=== PATIENT | male | born 1945 | race Caucasian/White ===

== ENCOUNTER → 2016-08-31 | Outpatient (CLI) | payer MEDICARE ==
[2016-03-16 10:32] VITALS: BP 158/73
[~2016-08-31] MED LIST: CONTRAST GIVEN MC PRN; FAMO-63 PO; FERR-26 PO; IOHEXOL 240 MG/ML 50ML VIAL. PO ONE; IOHEXOL 300 MG/ML 75 ML VIAL IV ONE; LEVO500T38 PO
--- NOTE | 2016-08-31 14:39 | RAD ---
Indication: Acute abdominal pain and left lower quadrant pain for 4 months. Axial imaging through the abdomen and pelvis was performed after the administration of intravenous contrast. Comparison is made with prior CT from 03/12/2016. The lung bases are clear. Minimal pneumobilia is again noted within the liver. Previously noted small bilateral pleural effusions have resolved. The pancreas again demonstrates some postsurgical changes. There is some mild prominence to the pancreatic duct however this has improved since prior exam. Calcification within the duct or pancreatic parenchyma within the tail is unchanged. Spleen is unremarkable. No adrenal mass is detected. The kidneys are unremarkable. The aorta is heavily calcified but nonaneurysmal. The edema noted in the upper abdomen on prior exam has resolved. No ascites is identified on today's study. The small and large bowel loops are normal caliber. The appendix is unremarkable. Bladder is unremarkable. The prostate gland is enlarged. No definite abdominal or pelvic lymphadenopathy is identified. The bony structures appear nonacute. Impression: Overall improved appearance to the abdomen and pelvis when compared with prior CT from 03/12/2016. No acute feature is detected. PQRS Compliance Statement: One or more of the following individualized dose reduction techniques were utilized for this examination: 1. Automated exposure control 2. Adjustment of the mA and/or kV according to patient size 3. Use of iterative reconstruction technique
== END | disposition home or self-care (01) ==
LOC: CT 08:51
PROVIDERS: ATTEND Family Medicine
DX: R10.32 Left lower quadrant pain (principal); I70.0 Atherosclerosis of aorta; N40.0 Benign prostatic hyperplasia without lower urinary tract symptoms
CPT/HCPCS: 74177; Q9966; Q9967

== ENCOUNTER → 2018-08-19 | Outpatient (CLI) | payer OTHER ==
[2016-03-16 10:32] VITALS: BP 158/73
[~2018-08-19] MED LIST changes: -CONTRAST GIVEN MC PRN; -FERR-26 PO; +FERR325T14 PO; -IOHEXOL 240 MG/ML 50ML VIAL. PO ONE; -IOHEXOL 300 MG/ML 75 ML VIAL IV ONE; -LEVO500T38 PO; +LEVO500T59 PO
--- NOTE | 2018-08-19 12:59 | KCIC ---
MRI Cervical Spine Without Contrast History: Left cervical radiculopathy Technique: Multiplanar, multi sequential noncontrast MR imaging was performed of the cervical spine. Comparison: None Findings: There is mild motion degradation Cervical cord caliber is within normal limits without defined or expansile signal abnormality, somewhat limited motion for subtle signal change due to motion. Cervical vertebral body stature is maintained. AP alignment is within normal limits. There is no significant marrow edema. There is moderate to severe degenerative disc disease C6-7, to lesser degree at C5-6, minimally at C4-C5. There is mild degenerative endplate change C5-6 and C6-7. There is some fluid associated with the lateral mass articulations C1-C2, may be degenerative in etiology. C2-C3: Neural foramina and spinal canal are adequate. C3-C4: There is negligible disc osteophyte complex. Spinal canal and neural foramina are adequate. C4-C5: There is shallow posterior protrusion. Central canal is minimally narrowed to about 9 mm. There is minimal buckling of the ligamentum flavum. There is mild facet degenerative change. Neural foramina are adequate. C5-C6: There is minimal disc osteophyte complex, mild indentation upon the ventral thecal sac somewhat greater right paracentral region extending below the intervertebral disc space. Central canal is narrowed to 8 to 9 mm. There is mild bilateral facet degenerative change. There is also uncovertebral degenerative change bilaterally, contributes to fairly severe right and moderate to severe left neural foramina compromise. C6-C7: There is posterior disc osteophyte complex, central canal adequate about 11 mm, mild indentation upon the ventral thecal sac. There is mild uncovertebral degenerative change. There is also bilateral facet degenerative change. There is mild to moderate narrowing of the right neural foramen, minimal narrowing on the left. C7-T1: Spinal canal and neural foramina are adequate. Impression: 1. There is mild spinal stenosis C4-5 and C5-6. There is moderate to severe degenerative disc disease C6-7 and to lesser degree at C5-6, minimally at C4-5. There is multilevel spondylosis greatest C5-6 and C6-7. 2. Facet and uncovertebral degenerative change contributes to fairly severe right and moderate to severe left C5-6 neural foramina compromise, mild to moderate narrowing right and mild left C6-7 neural foramina compromise Electronically signed by: Javier Stone MD (08/19/2018 12:55 PM) [email or web address]
== END | disposition home or self-care (01) ==
LOC: KCIC MRI 11:46
PROVIDERS: ATTEND Family Medicine
DX: M50.121 Cervical disc disorder at C4-C5 level with radiculopathy (principal); M47.892 Other spondylosis, cervical region; M48.02 Spinal stenosis, cervical region; M25.78 Osteophyte, vertebrae
CPT/HCPCS: 72141

== ENCOUNTER → 2018-11-16 | Outpatient (CLI) | payer OTHER ==
[2016-03-16 10:32] VITALS: BP 158/73
--- NOTE | 2018-11-16 14:27 | KCIC ---
MRI of the brain without contrast 11/16/2018 Clinical History: New onset of dizziness. Unsteady gait. Technique: Unenhanced T1-weighted sagittal and axial, T2-weighted axial and coronal and FLAIR, gradient echo and diffusion-weighted axial images of the brain were obtained. Findings: No previous imaging studies are available for comparison. There is generalized parenchymal atrophy. Patchy, confluent and multiple focal areas of increased signal intensity are seen within the periventricular and subcortical white matter of both cerebral hemispheres on the FLAIR and T2-weighted images consistent with areas of small vessel ischemic disease. No acute parenchymal abnormality is seen. No extra-axial fluid collection is seen. There is no MRI evidence of acute ischemia/infarction. Mild mucosal thickening in seen scattered throughout the paranasal sinuses. There are minimal bilateral mastoid effusions. Normal flow voids are seen within the major vascular structures surrounding the brain parenchyma. Impression: No acute parenchymal abnormality is seen. Electronically signed by: Pradip Santacruz MD (11/16/2018 2:24 PM) [id number]
== END | disposition home or self-care (01) ==
LOC: KCIC MRI 11:55
PROVIDERS: ATTEND Family Medicine
DX: G31.89 Other specified degenerative diseases of nervous system (principal); J34.89 Other specified disorders of nose and nasal sinuses; H74.8X3 Other specified disorders of middle ear and mastoid, bilateral; R42 Dizziness and giddiness
CPT/HCPCS: 70551

== ENCOUNTER → 2020-06-20 | Outpatient (CLI) | payer MEDICARE ==
[2016-03-16 10:32] VITALS: BP 158/73
[~2020-06-20] MED LIST changes: +AMLO-186 PO; +ATOR10TA60 PO; +IOHEXOL 240 MG/ML 50ML VIAL. PO ONE; +LISI-334 PO; +METF850T8 PO
--- NOTE | 2020-06-20 16:28 | KCIC ---
CT scan of the abdomen and pelvis with oral contrast only 06/20/2020 CLINICAL HISTORY: Pulsatile abdominal mass. History of Whipple procedure. TECHNIQUE: After the oral administration of contrast only, contiguous, 5 mm axial sections were obtained through the abdomen and pelvis. One or more of the following individualized dose reduction techniques were utilized for this study: 1. Automated exposure control. 2. Adjustment of the mA and/or kV according to patient size. 3. Use of iterative reconstruction technique. FINDINGS: Comparison study is dated 08/31/2016. Images through the lung bases demonstrate borderline cardiomegaly. Scattered coronary artery calcifications are seen. Linear bands of subsegmental atelectasis are seen involving both lower lobes. Calcified granulomas are seen involving the liver and spleen. Degerative changes are seen consistent with patient's history of a Whipple procedure. The remaining body/tail of pancreas has punctate calcifications scattered throughout it consistent with chronic pancreatitis. no acute abnormality of the remaining pancreas is seen. Atherosclerotic calcification abdominal aorta and its branches is noted. The abdominal aorta tapers normally. The gallbladder is not visualized consistent with a cholecystectomy. Free fluid or free air is within the abdomen. There is no evidence of bowel obstruction. The appendix is well-visualized and is within normal limits. Images through the pelvis demonstrate urinary bladder distended with urine. The prostate gland is enlarged likely related to BPH. Calcifications are seen within the pelvis consistent with a bolus. No free fluid is seen. Minimal S-shaped curvature of the thoracolumbar spine is seen. Degenerative changes are seen involving lower thoracic and throughout the lumbar spine along with both hips. IMPRESSION: No acute abnormality is seen. Electronically signed by: Pradip Santacruz MD (06/20/2020 4:25 PM) [id number]
== END ==
LOC: KCIC CT 13:05
PROVIDERS: ATTEND Family Medicine
DX: N20.0 Calculus of kidney (principal); R19.09 Other intra-abdominal and pelvic swelling, mass and lump; I51.7 Cardiomegaly; I25.10 Atherosclerotic heart disease of native coronary artery without angina pectoris; I70.0 Atherosclerosis of aorta; D73.89 Other diseases of spleen; K75.3 Granulomatous hepatitis, not elsewhere classified
CPT/HCPCS: 74176; Q9966